=== PATIENT | female | born 1980 | race Caucasian/White ===

== ENCOUNTER 2016-12-09 17:54 | Emergency (ER) | payer OTHER ==
[~2016-12-09] VITALS: Ht 151.1 cm; Wt 73.9 kg
[2016-12-09 17:58] VITALS: BP 130/98
--- NOTE | 2016-12-09 20:42 | NUR ---
PATIENT TO ER BED 5
[2016-12-09 21:57] VITALS: BP 128/76
--- NOTE | 2016-12-09 22:03 | NUR ---
Patient discharged with v/s stable. Written and verbal after care instructions given and explained. Patient alert, oriented and verbalized understanding of instructions. Ambulatory with steady gait. All questions addressed prior to discharge. ID band removed. Patient advised to follow up with PMD. Rx of PREDISONE given. Patient educated on indication of medication including possible reaction and side effects. Opportunity to ask questions provided and answered.
== END 2016-12-09 21:30 | disposition home or self-care (01) ==
LOC: EEVIPCON 17:54 → MED 17:54
DX: R07.89 Other chest pain (principal); R05 Cough
CPT/HCPCS: 71010; 99283